=== PATIENT | male | born 1985 | race Caucasian/White ===

== ENCOUNTER 2021-12-03 03:28 | Emergency (ER) | payer BC, SELFPAY ==
--- NOTE | ~2021-12-03 | CT_ITS ---
EXAMINATION: CT ABDOMEN AND PELVIS WITH CONTRAST CLINICAL INFORMATION: Right lower quadrant pain COMPARISON: None TECHNIQUE: Multidetector volumetric images were obtained from the superior aspect of the liver through the pubic symphysis following administration 85 mL of Omnipaque 350 intravenous contrast. Sagittal and coronal reformatted images were obtained on the technologist's workstation. Oral contrast: No This CT examination was performed using dose optimization techniques as appropriate, variously including the following: *Automated exposure control *Adjustment of mA and/or kV according to patient size (this includes techniques or standardized protocols for targeted exams where dose is matched to indication/reason for exam; i.e. extremities or head) *Use of iterative reconstruction technique DLP: 818 mGy-cm FINDINGS: LUNG BASES: The visualized lung bases are unremarkable. LIVER, GALLBLADDER, AND BILIARY TREE: The liver is normal in size, shape, and attenuation. No focal hepatic lesion or biliary ductal dilatation is present. The gallbladder appears partially contracted. PANCREAS: Unremarkable. SPLEEN: Unremarkable. ADRENAL GLANDS: Unremarkable. KIDNEYS AND URETERS: There is an 8 mm calculus in the region of the right ureteropelvic junction with mild hydronephrosis and perinephric stranding. No left-sided hydronephrosis or obstructing calculus. Subcentimeter hypodensities in the left kidney are statistically favored to reflect cysts. Punctate calcification noted in the upper left kidney. BLADDER: Unremarkable. GASTROINTESTINAL TRACT: No evidence of bowel obstruction or significant wall thickening. The appendix is at the upper limits of normal in size and contains an appendicolith. No appreciable periappendiceal stranding. No free fluid or free air is seen. ABDOMINAL WALL: No significant hernia is appreciated. LYMPH NODES: Normal. VASCULAR: Unremarkable. PELVIC VISCERA: Unremarkable. OSSEOUS STRUCTURES: There is mild disc space narrowing at L5-S1. Sclerotic focus in the right iliac bone near the sacroiliac joint is suggestive of a bone island. CT/CT abdomen pelvis w con IMPRESSION: 1. Right ureteropelvic junction calculus measuring 8 mm with mild hydronephrosis. 2. Appendix is at the upper limits of normal in size and contains an appendicolith. No surrounding stranding to suggest appendicitis. Fleischner guidelines were followed.
[2021-12-03 03:38] VITALS: BP 157/89; PULSE 89; RESP 18; TEMP 36.6; O2SAT 98; BMI 31.4
[2021-12-03 04:19] VITALS: BP 147/89; PULSE 81; RESP 16; O2SAT 98
[2021-12-03 04:28] LABS: Basophils Percent Auto 0.2 % (0-2); Eosinophils Absolute Auto 0.1 X10*3/uL (0.0-0.4); Eosinophils Percent Auto 0.7 % (0-4); Hematocrit 41.5 % (42.0-52.0); Imm Gran Abs Auto 0.02 X10*3/uL (0.00-0.03); Imm Gran Pct Auto 0.2 % (0.0-0.4); Lymphocytes Absolute Auto 1.2 X10*3/uL (1.2-4.9); Lymphocytes Percent Auto 14.4 % (20-40); MANUAL DIFF FLAG NO; Mean Corpuscular HGB Conc 33.7 g/dl (31.0-36.0); Mean Corpuscular Hemoglobin 29.6 pg (27.0-33.0); Mean Corpuscular Volume 87.7 fL (80.0-98.0); Mean Platelet Volume 9.1 fL (9.4-12.4); Monocytes Absolute Auto 0.5 X10*3/uL (0.1-1.2); Monocytes Percent Auto 6.1 % (2-11); Neutrophils Absolute Auto 6.4 x10*3/uL (2.0-8.3); Neutrophils Percent Auto 78.4 % (45-73); Platelet Count 215 X10*3/uL (160-400); Red Blood Count 4.73 X10*6/uL (4.60-5.80); Red Cell Distribution Width 12.3 % (11.0-16.0); White Blood Count 8.2 X10*3/uL (4.8-10.8)
[2021-12-03 04:46] LABS: Alanine Aminotransferase 32 U/L (0-40); Albumin Level 4.6 g/dL (3.5-5.0); Alkaline Phosphatase 99 U/L (39-117); Anion Gap 11 (12-20); Aspartate Amino Transferase 26 U/L (5-37); Bilirubin Direct < 0.2 mg/dL (0.0-0.5); Bilirubin Total 0.3 mg/dL (0.0-1.0); Blood Urea Nitrogen 13 mg/dL (9-16); Calcium 9.6 mg/dL (8.4-10.2); Carbon Dioxide 24 mmol/L (22-29); Chloride 106 mmol/L (96-108); Creatinine Clr Calc Pharmacy 124.3; Estimated Glomerular Filt Rate > 60; Glucose Random 178 mg/dL (60-115); Lipase 34 U/L (8-78); Sodium 137 mmol/L (135-145); Total Protein 7.4 g/dL (6.5-8.0)
[2021-12-03 04:46] LABS: Appearance Urine CLEAR; Color Urine YELLOW; Glucose Urine UA NEG (NEG); Leukocyte Esterase Urine NEG (NEG); Nitrite Urine NEG (NEG); UACC Culture Trigger NO; Urine Blood 3+ (NEG); Urine Ketones NEG (NEG); Urine Protein NEG (NEG-TRACE)
--- NOTE | 2021-12-03 04:49 | ED.ABDPAIN ---
HPI - Abdominal Pain General Chief Complaint: Abdominal Pain Stated Complaint: Abd pain Time Seen by Provider: 12/03/21 04:42 Source: patient Mode of arrival: ambulatory Limitations: no limitations History of Present Illness HPI narrative: Patient comes to emergency room complaining of right lower quadrant pain and right flank pain. Patient states it started approximately 5 hours ago. The pain woke him up from sleep. Patient states in the past he has had kidney stones, however the pain this time feels different. Patient denies vomiting or diarrhea, earlier today he had nausea. At this time, the patient is not as bad as it was a few hours ago. Patient took Tylenol prior to arrival. Patient denies any injuries, denies dysuria, hematuria Related Data Previous Rx's Medication Instructions Recorded acetaminophen 500 mg tablet 500 mg PO Q6H PRN #20 tab 12/03/21 ondansetron HCl 4 mg tablet 4 mg PO Q6H PRN #10 tab 12/03/21 tamsulosin 0.4 mg capsule 0.4 mg PO DAILY #7 cap 12/03/21 Allergies Allergy/AdvReac Type Severity Reaction Status Date / Time No Known Allergies Allergy Verified 12/03/21 04:48 Review of Systems Review of Systems Constitutional : No Weight loss, No Fever, No Chills, No Night Sweats, No Fatigue, No Malaise ENT/Mouth : No Hearing loss, No Ear Pain, No Nasal Congestion, No Sinus Pain, No Hoarseness, No sore throat, No Rhinorrhea, No Swallowing Difficulty Eyes: No Eye Pain, No Swelling, No Redness, No Foreign Body, No Discharge, No Vision Changes Cardiovascular : No Chest Pain, No SOB, No Dyspnea on Exertion, No Orthopnea, No Edema, No Palpitations Respiratory : No Cough, No Sputum, No Wheezing, No Smoke Exposure, No Dyspnea Gastrointestinal : Complaining of mild Nausea, No Vomiting, No Diarrhea, No Constipation, complaining of right lower quadrant pain No Hematochezia, No Melena Genitourinary : no irregular bleeding, No Dysuria, No Urinary Frequency, No Hematuria, No Urinary Incontinence, No Urgency, complaining of right lower quadrant pain radiating into the right flank pain, No Urinary Flow Changes, No Hesitancy Musculoskeletal : No joint pain, No Myalgias, No Joint Swelling Skin : No Skin Lesions, No rash Neuro : No Weakness, No Numbness, No Paresthesias, No Loss of Consciousness, No Dizziness, No Headache Psych : No Anxiety/Panic, No Depression, No SI/HI/AH/VH, No Social Issues, Heme/Lymph: No Bruising, No Bleeding,No Lymphadenopathy Endocrine : No Polyuria, No Polydipsia, No Temperature Intolerance [facility] Social History Social History Alcohol intake: never Patient Tobacco Use Status: Never used Tobacco Use of substances other than those prescribed or required for medical reasons: No Advance Directives: No Physical Exam ED Vital Signs: Vital Signs - 24 hr 12/03/21 03:38 12/03/21 04:19 12/03/21 06:00 Temperature 97.8 F 97.8 F Pulse Rate 89 81 73 Respiratory Rate 18 16 16 Blood Pressure 157/89 H 147/89 H 132/85 Pulse Oximetry 98 98 98 BMI result Body Mass Index 31.4 Const Other: Appearance: Alert. Oriented X3. No acute distress. Eyes: Pupils equal, round and reactive to light. ENT: Pharynx normal. Neck: Normal inspection. Neck supple. No lymph nodes noted. No crepitus CVS: Normal heart rate and rhythm. Pulses normal. Normal S1 and S2 Respiratory: No respiratory distress. Breath sounds normal. No Wheezing. No rales Abdomen: Soft , [id number] tenderness to palpation in the right lower quadrant, positive CVA tenderness on the right side. No guarding, no rebound Skin: Skin warm and dry. Normal skin color. Normal skin turgor. Extremities: No lower extremity edema. No lower extremity edema. No Lacerations. No Rash Neuro: Oriented X 3. No motor deficit. No sensory deficit. Moving all extermities. No slurred speech. Course Course Course Narrative: At this time, patient declined pain medications or nausea medications. CT scan pending I discussed the CT findings with the patient, patient has an 8 mm stone. I discussed with the patient that it is unlikely that he will be able to pass the stone, patient will likely need urologic intervention. At this time, patient has no pain. I offered to the patient Toradol, narcotics, patient states that he would like to be treated only with Tylenol. MDM - Abdominal Pain Lab Data Result diagrams: 12/03/21 04:24 12/03/21 04:24 Labs: Lab Results 12/03/21 12/03/21 12/03/21 Range/Units 04:24 04:24 04:36 WBC 8.2 (4.8-10.8) X10*3/uL RBC 4.73 (4.60-5.80) X10*6/uL Hgb 14.0 (14.0-18.0) g/dl Hct 41.5 L (42.0-52.0) % MCV 87.7 (80.0-98.0) fL MCH 29.6 (27.0-33.0) pg MCHC 33.7 (31.0-36.0) g/dl RDW 12.3 (11.0-16.0) % Plt Count 215 (160-400) X10*3/uL MPV 9.1 L (9.4-12.4) fL Immature Gran % (Auto) 0.2 (0.0-0.4) % Neut % (Auto) 78.4 H (45-73) % Lymph % (Auto) 14.4 L (20-40) % [place] % (Auto) 6.1 (2-11) % Eos % (Auto) 0.7 (0-4) % Baso % (Auto) 0.2 (0-2) % Lymph # (Auto) 1.2 (1.2-4.9) X10*3/uL [place] # (Auto) 0.5 (0.1-1.2) X10*3/uL Eos # (Auto) 0.1 (0.0-0.4) X10*3/uL Baso # (Auto) 0.0 (0.0-0.2) X10*3/uL Abs Immat Gran (auto) 0.02 (0.00-0.03) X10*3/uL Absolute Neuts (auto) 6.4 (2.0-8.3) x10*3/uL Absolute Nucleated RBC 0.000 (0.0-0.012) X10*3/uL Nucleated RBC % (auto) 0.0 (0.0-0.2) /100WBC Sodium 137 (135-145) mmol/L Potassium 4.0 (3.3-5.1) mmol/L Chloride 106 (96-108) mmol/L Carbon Dioxide 24 (22-29) mmol/L Anion Gap 11 L (12-20) BUN 13 (9-16) mg/dL Creatinine 1.10 (0.5-1.4) mg/dL Estim Creat Clear Calc 124.3 Estimated GFR > 60 Random Glucose 178 H (60-115) mg/dL Calcium 9.6 (8.4-10.2) mg/dL Total Bilirubin 0.3 (0.0-1.0) mg/dL Direct Bilirubin < 0.2 (0.0-0.5) mg/dL AST 26 (5-37) U/L ALT 32 (0-40) U/L Alkaline Phosphatase 99 (39-117) U/L Total Protein 7.4 (6.5-8.0) g/dL Albumin 4.6 (3.5-5.0) g/dL Lipase 34 (8-78) U/L Urine Color YELLOW Urine Appearance CLEAR Urine pH 6.0 (5.0-8.0) Ur Specific [place] 1.020 (1.005-1.025) Urine Protein NEG (NEG-TRACE) MG/DL Urine Glucose (UA) NEG (NEG) MG/DL Urine Ketones NEG (NEG) MG/DL Urine Blood 3+ H (NEG) Urine Nitrite NEG (NEG) Ur Leukocyte Esterase NEG (NEG) Urine RBC 15-29 H (0) /HPF Urine WBC 1-4 (0-4) /HPF Ur Squamous Epith Cells 1+ /LPF Urine Bacteria 1+ /LPF Imaging Data CT scan - abdomen: Radiologist's impression: FINDINGS: LUNG BASES: The visualized lung bases are unremarkable.? LIVER, GALLBLADDER, AND BILIARY TREE: The liver is normal in size, shape, and attenuation. No focal hepatic lesion or biliary ductal dilatation is present. The gallbladder appears partially contracted.? PANCREAS: Unremarkable.? SPLEEN: Unremarkable.? ADRENAL GLANDS: Unremarkable.? KIDNEYS AND URETERS: There is an 8 mm calculus in the region of the right ureteropelvic junction with mild hydronephrosis and perinephric stranding. No left-sided hydronephrosis or obstructing calculus. Subcentimeter hypodensities in the left kidney are statistically favored to reflect cysts. Punctate calcification noted in the upper left kidney. BLADDER: Unremarkable.? GASTROINTESTINAL TRACT: No evidence of bowel obstruction or significant wall thickening. The appendix is at the upper limits of normal in size and contains an appendicolith. No appreciable periappendiceal stranding. No free fluid or free air is seen. ABDOMINAL WALL: No significant hernia is appreciated.? LYMPH NODES: Normal. VASCULAR: Unremarkable. PELVIC VISCERA: Unremarkable.? OSSEOUS STRUCTURES: There is mild disc space narrowing at L5-S1. Sclerotic focus in the right iliac bone near the sacroiliac joint is suggestive of a bone island.? CT/CT abdomen pelvis w con IMPRESSION: 1.? Right ureteropelvic junction calculus measuring 8 mm with mild hydronephrosis. 2.? Appendix is at the upper limits of normal in size and contains an appendicolith. No surrounding stranding to suggest appendicitis. Discharge Plan Discharge Clinical Impression: Ureterolithiasis Patient Disposition: Home, Self-Care Instructions: Kidney Stones (ED) Additional Instructions: Please follow-up with your primary care physician tomorrow. If you have any worsening or new symptoms, please return to the emergency room or call 911 Prescriptions: New tamsulosin 0.4 mg capsule 0.4 mg PO DAILY Qty: 7 0RF ondansetron HCl 4 mg tablet 4 mg PO Q6H PRN (Reason: nausea and vomiting) Qty: 10 0RF acetaminophen 500 mg tablet 500 mg PO Q6H PRN (Reason: pain) Qty: 20 0RF Referrals: Eladio Solis MD [Physician] - 2 days
[2021-12-03 05:00] LABS: Bacteria Urine 1+ /LPF; Squamous Epithelial Cell Urine 1+ /LPF
[2021-12-03] MEDS: iohexoL 350 MG/ML 100 ML INFUS..BTL 85 ML IV (05:57)
[2021-12-03 06:00] VITALS: BP 132/85; PULSE 73; RESP 16; TEMP 36.6; O2SAT 98
== END 2021-12-03 06:53 | disposition home or self-care (01) ==
PROVIDERS: Emergency Provider Emergency Medicine; PCP Family Medicine
DX: N20.1 Calculus of ureter (principal); R10.31 Right lower quadrant pain; Z79.899 Other long term (current) drug therapy
CPT/HCPCS: 36415; 74177; 80053; 81001; 82248; 83690; 85025; 99284; Q9967

== ENCOUNTER → 2021-12-05 14:40 | Outpatient (BNVA) | payer BC, SELFPAY | PROVIDERS: PCP Family Medicine ==

== ENCOUNTER 2022-01-08 07:32 | Day surgery (SDC) | payer BC, SELFPAY ==
[2022-01-02 15:38] VITALS: BMI 30.8
--- NOTE | 2022-01-07 11:54 | P.CONAN_ITS ---
Documented by User: Katharine Marquez NP 01/07/22 11:55 HPI - Anesthesia Eval Consult details Narrative: 36yo M for Right ESWL PMFSH Past Medical History Medical History (Updated 01/02/22 @ 15:38 by Jovanna Roman RN) Kidney stones Migraine Surgical History Surgical History (Updated 01/02/22 @ 15:38 by Jovanna Roman RN) History of nasal septoplasty [place] teeth extracted Social History Social History Are you a primary cattle care worker to a significant other at home: No Do you presently have visiting nurse or other home services: No Alcohol intake: never Patient Tobacco Use Status: Never used Tobacco Meds Allergies Allergy/AdvReac Type Severity Reaction Status Date / Time No Known Allergies Allergy Verified 01/02/22 15:38 Home Medications Medication Instructions Recorded Confirmed Last Taken Type sumatriptan 20 mg/actuation nasal 20 mg INTRANASAL Q2H PRN 12/05/21 01/02/22 Unknown History spray Exam Exam Date and Time: January 07, 2022 1154 Height,Weight and Vital Signs: Height 6 ft 2 in Weight 108.862 kg Pertinent Lab Results Pertinent Lab Results: Laboratory Tests 12/03/21 12/03/21 04:24 04:24 WBC 8.2 Hgb 14.0 Hct 41.5 L Plt Count 215 Sodium 137 Potassium 4.0 Chloride 106 Carbon Dioxide 24 BUN 13 Creatinine 1.10 Assessment and Plan Assessment Anesthesia Assessment: Chart Reviewed Documented by User: Malik Boone MD 01/08/22 15:08 HPI - Anesthesia Eval Consult details Narrative: 36yo M for Right ESWL Migranes PMFSH Past Medical History Medical History (Updated 01/02/22 @ 15:38 by Jovanna Roman RN) Kidney stones Migraine Functional capacity: independent ambulation Family History Family history of problems with anesthesia: No Surgical History Surgical History (Updated 01/02/22 @ 15:38 by Jovanna Roman RN) History of nasal septoplasty [place] teeth extracted History of Problems with Anesthesia: No Social History Social History Are you a primary cattle care worker to a significant other at home: No Do you presently have visiting nurse or other home services: No Alcohol intake: never Patient Tobacco Use Status: Never used Tobacco Meds Allergies Allergy/AdvReac Type Severity Reaction Status Date / Time No Known Allergies Allergy Verified 01/02/22 15:38 Home Medications Medication Instructions Recorded Confirmed Last Taken Type sumatriptan 20 mg/actuation nasal 20 mg INTRANASAL Q2H PRN 12/05/21 01/02/22 Unknown History spray Exam Airway Mallampati Class: II TM Dist: >3cm Neck ROM: Full Loose/Missing/Broken Teeth: Yes Heart: rrr Lungs: bl breath sounds Assessment and Plan Assessment Anesthesia Assessment: Anesthesia Plan Discussed Final Anesthetic Review Family History of Problems with Anesthesia: No History of Problems with Anesthesia: No NPO: Yes ASA Class: II Final Preanesthetic Review: Meds/Allgs Chart Reviewed, Consent Obtained/Reviewed and Anes Risks/Benef Reviewed Patient Risk: Intermediate Procedure Risk: Intermediate Anesthetic Plan Anesthetic Plan: GA Disposition: Standard PACU
[2022-01-08] VITALS (7 sets, daily range): BP systolic 110–140; BP diastolic 64–97; PULSE 70–84; RESP 16–19; TEMP 36.1–37.1; O2SAT 95–99
--- NOTE | ~2022-01-08 | XR_ITS ---
EXAMINATION: XR ABDOMEN KUB CLINICAL INDICATION: Nephrolithiasis. COMPARISON: CT abdomen and pelvis with contrast 12/03/2021. TECHNIQUE: AP view of the abdomen. FINDINGS: There is a 9 mm radiopaque calculi adjacent and inferior to right L3 transverse process, corresponding to UPJ stone seen on recent CT abdomen exam. No additional calculi seen. There is scattered stool and colon. No gross bony abnormality. There are phleboliths in the pelvis. No gross bony abnormality. XR/XR KUB IMPRESSION: 9 mm radiopaque calculi right UPJ adjacent to the right L3 transverse process. Findings are concordant with CT results from 12/03/2021.
[2022-01-08] MEDS: Lactated Ringers 1,000 ML 100 ML IVCONT (08:01)
[2022-01-08] MEDS: Acetaminophen 325 MG TABLET 650 MG PO (08:02)
--- NOTE | 2022-01-08 09:41 | MHC.SHP ---
Pre-Procedural Eval Section A Date of Service: 01/08/22 The patient is an INPATIENT: No Changes since office visit: No Cold of Flu in the past 2 weeks, No New Medical Problems, No Changes in Medication and No Patient answered all questions The History & Physical has been completed within 30 days and I have reviewed it.: No Section B Chief Complaint: Calculus of kidney Details of Present Illness: right renal stone UPJ - target Relevant Family History (Specify if Yes): No Relevant Social History: None Present Medications: None Medical History: No relevant PMH History of Previous Operations: No relevant previous surgery Allergies: Allergies Allergy/AdvReac Type Severity Reaction Status Date / Time No Known Allergies Allergy Verified 01/02/22 15:38 Review of Systems Sugical H&P ROS: Negative: Constitution, Cardiovascular, Respiratory, Neurological, Psychiatric, Hem-Onc, Allergic/Immunologic, Gastrointestinal, Genitourinary, Musculoskeletal, Integumentary, Endocrine and Eyes/Ears/Nose/Throat Exam Surgical H&P Exam: Normal: HEENT, Normal: Heart, Normal: Lungs, Normal: Extremities, Normal: Abdomen, Normal: Skin and Normal: Neurological Plan Diagnosis/Plan: Unchanged (right renal/upper ureter stone ESW) I have reviewed the history and physical and performed a pertinent physical examination on my patient. No changes have occurred unless specified.
--- NOTE | 2022-01-08 10:13 | W.PM.OPN ---
Operative Note Operative Note Date of Service: 01/08/22 Narrative: PreOperative Diagnosis: Right Renal stones Post Operative Diagnosis: Right mid ureteric stone Procedure: Right ureteric ESWL Surgeon: Dr Eladio Solis Anesthesia: mac/sedation Indications for procedure: The patient understands ESWL may be a staged procedure and subsequent intervention may be required based on imaging after ESWL. They also understand there is a risk of bleeding to the kidney, infection, damage to adjacent organs, and stone migration following the procedure. - Imaging right proximal ureteric stone. On fluoroscopy seen to be right mid ureteric stone Procedure: After informed consent was verified the patient was brought to the operating room and placed in a supine position. Anesthesia was performed per protocol. Safety pause time-out was performed. Imaging was displayed in the room and laterality confirmed. ESWL was performed. The 1st 500 shocks were performed at increasing power. One hundred twenty hertz. A total of 3000 shocks were given. Targetted imaging with ultrasound/fluoroscopy showed stone smudging suggestive of disintegration. The patient tolerated the procedure well and was transferred to the recovery area upon completion. Post procedure imaging will be organized. There was no evidence for flank discoloration.
== END 2022-01-08 11:51 | disposition home or self-care (01) ==
PROVIDERS: PCP Family Medicine; Visit Provider Urology
PROC: (CPT 50590; principal; 2022-01-08 09:30)
DX: N20.1 Calculus of ureter (principal); Z87.442 Personal history of urinary calculi
CPT/HCPCS: 50590; 74018; J1100; J2250; J2405; J3010

== ENCOUNTER 2022-03-06 15:03 | Outpatient (REF) | payer BC, SELFPAY ==
--- NOTE | ~2022-03-06 | US_ITS ---
EXAMINATION: US RETROPERITONEAL LIMITED (RENAL ONLY) CLINICAL INFORMATION: Calculus of kidney. COMPARISON: X-ray abdomen KUB 01/08/2022. CT abdomen and pelvis 12/23/2021. TECHNIQUE: Real-time imaging of the kidneys. FINDINGS: RIGHT KIDNEY: 11.0 x 4.9 x 5.7 cm (SAG x AP x TRV). The kidney is normal in size, contour, and echogenicity. Renal cortical thickness is normal. No calculi or focal parenchymal lesions. No hydronephrosis. LEFT KIDNEY: 12.0 x 6.6 x 5.1 cm (SAG x AP x TRV). The kidney is normal in size, contour, and echogenicity. Renal cortical thickness is normal. No calculi or focal parenchymal lesions. No hydronephrosis. Mild nonspecific pelvic fullness. US/US renal BI IMPRESSION: No nephrolithiasis or hydronephrosis.
== END 2022-03-06 15:04 | disposition home or self-care (01) ==
LOC: HO.US 15:03
PROVIDERS: Visit Provider Urology
DX: N20.0 Calculus of kidney (principal)
CPT/HCPCS: 76775